=== PATIENT | male | born 1975 | race Caucasian/White ===

== ENCOUNTER 2017-07-26 19:29 | Emergency (ER) | payer SELFPAY ==
[~2017-07-26] VITALS: Ht 162.6 cm; Wt 74.2 kg
[2017-07-26 19:50] VITALS: BP 155/94
--- NOTE | 2017-07-26 19:55 | NUR ---
PT SENT TO LOBBY. NO S/S OF DISTRESS NOTED. ER MD MADE AWARE OF BILATERAL SWEELING NOTED TO FEET.
[2017-07-26 20:29] LABS: APPEARANCE,URINE HAZY (CLEAR); BILIRUBIN,URINE NEGATIVE (NEGATIVE); BLOOD, URINE 2+ (NEGATIVE); COLOR,URINE YELLOW (YELLOW); LEUKOCYTE ESTERASE ,URINE NEGATIVE (NEGATIVE); NITRITE, URINE NEGATIVE (NEGATIVE); UGLUCOSE 3+ (NEGATIVE)
[2017-07-26 20:32] LABS: RBC,URINE 11-20 (MOD) /HPF (0-5); WBC,URINE 6-15 (FEW) /HPF (0-5)
[2017-07-26 20:53] LABS: HEMATOCRIT 33.7 % (36-52); HEMOGLOBIN 11.6 g/dL (12.0-18.0); MEAN CORPUSCULAR HEMOGLOBIN 29 pg (27-31); MEAN CORPUSCULAR HGB CONC 35 g/dL (33-37); MEAN CORPUSCULAR VOLUME 84 fL (80-94); PLATELET COUNT (AUTO) 255 K/uL (140-450); RED BLOOD CELL COUNT(AUTO) 4.02 MIL/uL (4.20-6.10); RED CELL DISTRIBUTION WIDTH 11.8 % (11.6-13.7); WHITE BLOOD COUNT (AUTO) 13.4 K/uL (4.8-10.8)
[2017-07-26 21:13] LABS: ACETONE, SERUM NEGATIVE (NEGATIVE)
[2017-07-26 21:15] LABS: ALBUMIN 1.9 g/dL (3.4-5.0); ASPARTATE AMINOTRANSFERASE 37 U/L (15-37); CARBON DIOXIDE 31.7 mmol/L (21-32); CHLORIDE 91 mmol/L (98-107); CREATININE 1.4 mg/dL (0.7-1.3); GFR ARICAN-AMERICAN 72 mL/min (>90); LIPASE 215 U/L (73-393); POTASSIUM 3.7 mmol/L (3.5-5.1); SODIUM SERUM 126 mmol/L (136-145); TOTAL BILIRUBIN 0.2 mg/dL (0.0-1.0); UREA NITROGEN, BLOOD 27 mg/dL (7-18)
[2017-07-26 21:18] LABS: LYMPHOCYTES % (MANUAL) 12 % (20-46)
[2017-07-26 21:19] LABS: EOSINOPHILS % (MANUAL) 1 % (0-4); METAMYELOCYTES % 1 % (0-0); MONOCYTES % (MANUAL) 5 % (5-12); MYELOCYTES % 3 % (0-0)
[2017-07-26 21:22] LABS: GLUCOSE 506 mg/dL (74-106)
--- NOTE | 2017-07-26 21:26 | NUR ---
PT SITTING UP IN BED, IN NAD. RESP EVEN AND UNLABORED, ON RA@98%. PT REPORTS LEFT LOWER LEG SWELLING X 4 DAYS, PROGRESSIVLEY GETTING WORSE. +4 PITTING EDEMA. RT LOWER EXTREMITY SWLLING X 2DAYS, ALSO PROGRESSIVELY GETTING WORSE +4 PITTING EDEMA. PT DENIES FEVERS/CHILLS, DENIES SOB. LS-RHOCHI TO LEFT UPPER AND LOWER LOBES. PT DENIES CP. SKIN WARM/DRY/INTACT. REPORTS MILD PAIN WITH TOUCH, COOL TO TOUCH. CAP REFILL >3, DIFFICULT TO PALPATE PEDAL PULSES. PT ONLY REPORTS DIABETES AND CONTROLLED WITH METFORMIN, DENIES ANY CHANGES IN DIET.
[2017-07-26] MEDS ORDERED: INSULIN HUMAN REGULAR 100 UNITS/ML 10 ML VIAL SUBQ ONE (21:30)
--- NOTE | 2017-07-26 22:12 | NUR ---
MEDICATED ORDERED FOR BLOOD GLUCOSE 506MG/DL, AT BEDSIDE.
--- NOTE | 2017-07-26 22:49 | NUR ---
DR DE SOUZA UPDATEDON HIGH BP 197/98, PAIN 5.10 TO HECTOR LEGS AND THAT PT HAS RHONCHI TO LEFT UPPER AND LOWER LOBES, CXR ORDERED, NO FURTHER ORDERS RECEIVED.
--- NOTE | 2017-07-27 00:33 | NUR ---
Patient discharged with v/s stable. Written and verbal after care instructions given and explained. Patient alert, oriented and verbalized understanding of instructions. Ambulatory with steady gait. All questions addressed prior to discharge. ID band removed. Patient advised to follow up with PMD. Rx of NORCO 5MG Q6HRS PRN given. Patient educated on indication of medication including possible reaction and side effects. Opportunity to ask questions provided and answered.
[2017-07-27 00:34] VITALS: BP 123/73
== END 2017-07-27 00:33 | disposition home or self-care (01) ==
LOC: MED 19:29
DX: E11.40 Type 2 diabetes mellitus with diabetic neuropathy, unspecified (principal); E46 Unspecified protein-calorie malnutrition
CPT/HCPCS: 36415; 71010; 80053; 81001; 82009; 82948; 83690; 83880; 84484; 85025; 87086; 96372; 99285; J1815; Q0092